=== PATIENT | male | born 1990 | race African-American/Black ===

== ENCOUNTER 2017-06-04 15:28 | Emergency (ER) | payer OTHER ==
[~2017-06-04] VITALS: Ht 182.9 cm; Wt 81.6 kg
[2017-06-04 15:30] VITALS: BP 112/68
[2017-06-04] MEDS ORDERED: Bacitracin Oint UD TOPIC ONE (16:00)
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
[2017-06-04] MEDS ORDERED: IBUPROFEN600 MG ORAL (17:35)
[2017-06-04] MEDS ORDERED: BACITRACIN-P28.35 GM TP (17:35)
[2017-06-04] MEDS ORDERED: NORCO 5-325 TA1 EACH ORAL (17:35)
[2017-06-04 18:09] VITALS: BP 129/78
[2017-06-04] MEDS ORDERED: Norco 5mg/325mg tab ORAL ONE (18:15)
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
== END 2017-06-04 18:36 | disposition home or self-care (01) ==
LOC: EDBD 15:28 → EMR 17:08
DX: S92.902A Unspecified fracture of left foot, initial encounter for closed fracture (principal); S93.402A Sprain of unspecified ligament of left ankle, initial encounter; T14.8XXA Other injury of unspecified body region, initial encounter; S40.812A Abrasion of left upper arm, initial encounter; S40.811A Abrasion of right upper arm, initial encounter; S80.811A Abrasion, right lower leg, initial encounter; Y04.2XXA Assault by strike against or bumped into by another person, initial encounter
CPT/HCPCS: 29515; 99284